=== PATIENT | female | born 1940 | race African-American/Black ===

== ENCOUNTER 2021-02-17 10:20 | Inpatient (IN) | payer MEDICARE, OTHER ==
[~2021-02-17] VITALS: Ht 167.6 cm; Wt 72.6 kg
[2021-02-17 11:13] LABS: BASOPHILS # (AUTO) 0.1 (0.0-0.1); BASOPHILS % 0.7 % (0.0-1.0); LYMPHOCYTES # (AUTO) 1.6 (1.0-3.2); LYMPHOCYTES % 12.7 % (18.0-39.1); MEAN CORPUSCULAR HEMOGLOBIN 30.9 pg (28-32); MEAN CORPUSCULAR HGB CONC 29.6 g/dL (31-35); MEAN CORPUSCULAR VOLUME 104.3 fL (81-99); MONOCYTES # (AUTO) 6.8 (0.2-0.8); MONOCYTES % 53.6 % (4.4-11.3); NEUTROPHILS % 31.7 % (38.7-80.0); PLATELET COUNT 56 x10e3/uL (140-360); RED BLOOD COUNT 1.88 x10e6/uL (3.6-5.1); RED CELL DISTRIBUTION WIDTH 23.1 % (11.7-14.4)
[2021-02-17 11:28] LABS: HEMOGLOBIN 5.8 g/dL (12.0-16.0)
[2021-02-17 11:29] LABS: HEMATOCRIT 19.6 % (34.2-44.1)
[2021-02-17] MEDS ORDERED: SODIUM CHLORIDE 0.9% 250ML 250 ML IV ONE (11:30)
[2021-02-17 11:32] LABS: ALBUMIN 3.5 g/dL (3.5-5.0); ALBUMIN/GLOBULIN RATIO 0.8 (0.8-2.0); ANION GAP 15.5 mmol/L (8-16); CREATININE, SERUM 1.18 mg/dL (0.57-1.11)
[2021-02-17 11:34] LABS: CALCIUM 6.6 mg/dL (8.4-10.2); POTASSIUM 2.5 mmol/L (3.5-5.1)
[2021-02-17] MEDS ORDERED: POTASSIUM CHLORIDE 10MEQ/100ML 100 ML IV STA (11:44)
[2021-02-17 12:00] LABS: BAND NEUTROPHILS % (MANUAL) 2 %; EOSINOPHILS % (MANUAL) 1 % (0-7); LYMPHOCYTES % (MANUAL) 27 % (19-48); METAMYELOCYTES % (MANUAL) 3 % (0-0); MONOCYTES % (MANUAL) 26 % (3.4-9.0); MYELOCYTES % (MANUAL) 2 % (0-0); NEUTROPHILS % (MANUAL) 37 % (40-74)
[2021-02-17] MEDS ORDERED: POTASSIUM CHLORIDE 20 MEQ TAB CR PO NR (12:00)
[2021-02-17 12:01] LABS: ANISOCYTOSIS MODE; MICROCYTOSIS MODE; POIKILOCYTOSIS MODERATE; TARGET CELLS FEW
[2021-02-17 12:05] LABS: PLATELET ESTIMATE MODERATELY DECREASED; PLATELET MORPHOLOGY COMMENT NORMAL; RBC MORPHOLOGY COMMENT NORMAL; SCHISTOCYTES RARE
[2021-02-17 12:06] LABS: HYPOCHROMASIA SLIG; POLYCHROMASIA FEW
[2021-02-17] MEDS ORDERED: SODIUM CHLORIDE 0.9% 500ML 500 ML IV ONE (12:15)
[2021-02-17 16:42] VITALS: BP 136/89
[2021-02-17 17:00] VITALS: BP 136/89
[2021-02-17 17:01] VITALS: BP 136/89
[2021-02-17] MEDS ORDERED: ALBUTEROL S5 MG/1 ML INH (17:13)
[2021-02-17] MEDS ORDERED: PIOGLITAZONE HC15 MG (17:27)
[2021-02-17] MEDS ORDERED: FEROSUL325 MG (17:27)
[2021-02-17] MEDS ORDERED: LOVASTATIN40 MG (17:27)
[2021-02-17] MEDS ORDERED: ESCITALOPRAM OX10 MG (17:27)
[2021-02-17] MEDS ORDERED: DESONIDE15 GM (17:27)
[2021-02-17] MEDS ORDERED: TRELEGY ELLIPT1 EACH INH (17:27)
[2021-02-17] MEDS ORDERED: HYDROXYUREA500 MG PO (17:27)
[2021-02-17] MEDS ORDERED: GLIPIZIDE10 MG PO (17:27)
[2021-02-17] MEDS ORDERED: TRADJENTA5 MG (17:27)
[2021-02-17] MEDS ORDERED: PANTOPRAZOLE SO40 MG PO (17:27)
[2021-02-17] MEDS ORDERED: METFORMIN HCL500 M1 PO (17:27)
[2021-02-17] MEDS ORDERED: PREDNISONE20 MG (17:27)
[2021-02-17] MEDS ORDERED: METOPROLOL SUCC50 MG PO (17:27)
[2021-02-17] MEDS ORDERED: LANTUS 3ML100 UNITS/ (17:27)
[2021-02-17] MEDS ORDERED: ALLOPURINOL300 MG (17:27)
[2021-02-17] MEDS ORDERED: LISINOPRIL2.5 MG PO (17:27)
[2021-02-17] MEDS ORDERED: METAMUCIL FIBE3.4 GM PO (17:36)
[2021-02-17] MEDS ORDERED: ATIVAN0.5 MG PO (17:36)
[2021-02-17] MEDS ORDERED: CRESTOR10 MG PO (17:36)
[2021-02-17] MEDS ORDERED: TRADJENTA5 MG PO (17:36)
[2021-02-17] MEDS ORDERED: ALBUTEROL1.25 MG/3 NEB (17:36)
[2021-02-17] MEDS ORDERED: MIRALAX17 GM PO (17:36)
[2021-02-17] MEDS ORDERED: LEVSIN0.125 MG SL (17:36)
[2021-02-17] MEDS ORDERED: tylenol #3 PO (17:36)
[2021-02-17] MEDS ORDERED: ACETAMINOPHEN325 M1 PO (17:36)
[2021-02-17] MEDS ORDERED: humalog SQ (17:36)
[2021-02-17] MEDS ORDERED: SODIUM CHLORIDE 0.9% 250ML 250 ML ONE (18:17)
[2021-02-17] MEDS ORDERED: ALBUTEROL SULF 0.083% NEB SOLN 3 ML NEB NEB PRN (19:15)
[2021-02-17 20:27] VITALS: BP 109/94
[2021-02-17 21:24] VITALS: BP 109/94
[2021-02-17 23:43] VITALS: BP 129/69
[2021-02-18] VITALS (7 sets, daily range): BP systolic 118–127; BP diastolic 56–67
[2021-02-18] MEDS: ALBUTEROL SULF 0.083% NEB SOLN 3 ML NEB NEB SCH ×4 (00:35→19:00)
[2021-02-18 06:00] LABS: BASOPHILS # (AUTO) 0.1 (0.0-0.1); BASOPHILS % 0.5 % (0.0-1.0); EOSINOPHILS % 0.2 % (0.0-6.0); LYMPHOCYTES # (AUTO) 1.9 (1.0-3.2); LYMPHOCYTES % 11.2 % (18.0-39.1); MEAN CORPUSCULAR HEMOGLOBIN 29.9 pg (28-32); MEAN CORPUSCULAR HGB CONC 30.7 g/dL (31-35); MEAN CORPUSCULAR VOLUME 97.3 fL (81-99); MONOCYTES # (AUTO) 9.7 (0.2-0.8); MONOCYTES % 57.5 % (4.4-11.3); NEUTROPHILS # (AUTO) 4.8 (2.1-6.9); NEUTROPHILS % 28.5 % (38.7-80.0); PLATELET COUNT 51 x10e3/uL (140-360); RED BLOOD COUNT 2.21 x10e6/uL (3.6-5.1); RED CELL DISTRIBUTION WIDTH 22.9 % (11.7-14.4)
[2021-02-18 06:14] LABS: HEMATOCRIT 21.5 % (34.2-44.1); HEMOGLOBIN 6.6 g/dL (12.0-16.0)
[2021-02-18] MEDS ORDERED: SODIUM CHLORIDE 0.9% 250ML 250 ML IV ONE (06:30)
[2021-02-18 06:49] LABS: ANION GAP 13.4 mmol/L (8-16); CREATININE, SERUM 0.99 mg/dL (0.57-1.11)
[2021-02-18 06:52] LABS: CALCIUM 6.2 mg/dL (8.4-10.2); MAGNESIUM 0.9 MG/DL (1.3-2.1); POTASSIUM 2.4 mmol/L (3.5-5.1)
[2021-02-18 07:05] LABS: LYMPHOCYTES % (MANUAL) 35 % (19-48); MONOCYTES % (MANUAL) 30 % (3.4-9.0); NEUTROPHILS % (MANUAL) 35 % (40-74)
[2021-02-18 07:06] LABS: ANISOCYTOSIS SLIG; HYPOCHROMASIA MODERATE; POIKILOCYTOSIS MODE
[2021-02-18 07:07] LABS: PLATELET ESTIMATE MODERATELY DECREASED; POLYCHROMASIA MODE; RBC MORPHOLOGY COMMENT ABNORMAL; STOMATOCYTES F; TARGET CELLS FEW
[2021-02-18] MEDS ORDERED: POTASSIUM CHLORIDE 20MEQ/100ML 100 ML IV STA (09:20)
[2021-02-18] MEDS ORDERED: MAGNESIUM SULFATE 2GM/50ML 50 ML IV ONE (09:30)
[2021-02-18] MEDS ORDERED: LORAZEPAM 0.5 MG TAB PO PRN (09:30)
[2021-02-18] MEDS ORDERED: SODIUM CHLORIDE 0.45% 1,000 ML IV ONE (09:30)
[2021-02-18] MEDS ORDERED: POLYETHYLENE GLYCOL 3350 17 GM PACK PO PRN (09:30)
[2021-02-18] MEDS ORDERED: ACETAMINOPHEN 325 MG TAB PO PRN (09:30)
[2021-02-18 09:45] LABS: CHOL/HDL RATIO 3.3 (3.0-3.6)
[2021-02-18] MEDS ORDERED: CALCIUM GLUCONATE 10% INJ 13.95 MEQ in SODIUM CHLORIDE 0.9% 100 ML 100 ML IV ONE (10:00)
[2021-02-18] MEDS ORDERED: POTASSIUM CHLORIDE 20 MEQ TAB CR PO ONE (10:00)
[2021-02-18] MEDS ORDERED: SODIUM CHLORIDE 0.9% 250ML 250 ML ONE ×2 (10:41→23:19)
[2021-02-18 16:47] LABS: MAGNESIUM 1.3 MG/DL (1.3-2.1); PHOSPHORUS 3.1 MG/DL (2.3-4.7)
[2021-02-18] MEDS ORDERED: HYDROXYUREA 500 MG CAPSULE PO SCH (17:00)
[2021-02-18 17:11] LABS: POTASSIUM 2.9 mmol/L (3.5-5.1)
[2021-02-18] MEDS ORDERED: SIMETHICONE 80 MG CHEW PO PRN (18:30)
[2021-02-18] MEDS: SIMVASTATIN 20 MG TAB PO SCH (21:24)
[2021-02-18] MEDS: HYDROXYUREA 500 MG CAPSULE PO SCH (21:24)
[2021-02-18] MEDS: HYOSCYAMINE 0.125 MG TAB SL PRN (22:20)
[2021-02-19] VITALS (8 sets, daily range): BP systolic 96–159; BP diastolic 57–87
[2021-02-19] MEDS: ALBUTEROL SULF 0.083% NEB SOLN 3 ML NEB NEB SCH ×4 (00:55→14:45)
[2021-02-19 06:36] LABS: BASOPHILS # (AUTO) 0.1 (0.0-0.1); BASOPHILS % 0.4 % (0.0-1.0); HEMATOCRIT 28.1 % (34.2-44.1); HEMOGLOBIN 8.7 g/dL (12.0-16.0); LYMPHOCYTES % 6.3 % (18.0-39.1); MEAN CORPUSCULAR HEMOGLOBIN 29.4 pg (28-32); MEAN CORPUSCULAR VOLUME 94.9 fL (81-99); MONOCYTES # (AUTO) 19.1 (0.2-0.8); MONOCYTES % 60.2 % (4.4-11.3); NEUTROPHILS # (AUTO) 9.7 (2.1-6.9); NEUTROPHILS % 30.7 % (38.7-80.0); PLATELET COUNT 57 x10e3/uL (140-360); RED BLOOD COUNT 2.96 x10e6/uL (3.6-5.1); RED CELL DISTRIBUTION WIDTH 21.1 % (11.7-14.4)
[2021-02-19] MEDS ORDERED: FUROSEMIDE INJ 10 MG/ML 2 ML VIAL IV ONE (06:45)
[2021-02-19 06:50] LABS: ANION GAP 14.6 mmol/L (8-16); CALCIUM 7.5 mg/dL (8.4-10.2); CREATININE, SERUM 0.95 mg/dL (0.57-1.11); MAGNESIUM 1.2 MG/DL (1.3-2.1); PHOSPHORUS 3.3 MG/DL (2.3-4.7)
[2021-02-19 06:52] LABS: POTASSIUM 2.6 mmol/L (3.5-5.1)
[2021-02-19] MEDS ORDERED: POTASSIUM CHLORIDE 20 MEQ TAB CR PO STA (07:08)
[2021-02-19] MEDS ORDERED: MAGNESIUM SULFATE 2GM/50ML 50 ML IV ONE ×2 (07:15→13:15)
[2021-02-19] MEDS: METOPROLOL SUCCINATE 50 MG TAB XL PO SCH (08:33)
[2021-02-19] MEDS: HYDROXYUREA 500 MG CAPSULE PO SCH ×2 (08:33→20:29)
[2021-02-19] MEDS: PANTOPRAZOLE SOD 40 MG TABEC PO SCH (08:33)
[2021-02-19] MEDS: METHYLPREDNISOLONE SOD SUCC 40 MG/ML VIAL 1ML IV SCH ×2 (11:30→22:30)
[2021-02-19] MEDS ORDERED: POTASSIUM CHLORIDE 20MEQ/100ML 100 ML IV ONE (13:15)
[2021-02-19 14:21] LABS: MAGNESIUM 1.5 MG/DL (1.3-2.1); POTASSIUM 3.7 mmol/L (3.5-5.1)
[2021-02-19] MEDS: LEVALBUTEROL HCL SOLN NEBU 0.63 MG/3 ML NEB INH SCH ×3 (15:00→22:55)
[2021-02-19] MEDS: INSULIN LISPRO 100 UNIT/1 ML 3ML VIAL SQ SCH ×2 (16:30→17:14)
[2021-02-19] MEDS: HYOSCYAMINE 0.125 MG TAB SL PRN (19:51)
[2021-02-19] MEDS: SIMVASTATIN 20 MG TAB PO SCH (20:29)
[2021-02-19] MEDS: FUROSEMIDE INJ 10 MG/ML 2 ML VIAL IV SCH (20:31)
[2021-02-20] VITALS (9 sets, daily range): BP systolic 107–147; BP diastolic 50–84
[2021-02-20] MEDS: LEVALBUTEROL HCL SOLN NEBU 0.63 MG/3 ML NEB INH SCH ×6 (03:00→23:55)
[2021-02-20] MEDS: INSULIN LISPRO 100 UNIT/1 ML 3ML VIAL SQ SCH ×3 (08:01→16:30)
[2021-02-20 08:08] LABS: BASOPHILS # (AUTO) 0.1 (0.0-0.1); BASOPHILS % 0.3 % (0.0-1.0); HEMATOCRIT 28.5 % (34.2-44.1); HEMOGLOBIN 8.9 g/dL (12.0-16.0); LYMPHOCYTES # (AUTO) 1.8 (1.0-3.2); LYMPHOCYTES % 5.3 % (18.0-39.1); MEAN CORPUSCULAR HEMOGLOBIN 29.7 pg (28-32); MEAN CORPUSCULAR HGB CONC 31.2 g/dL (31-35); MONOCYTES # (AUTO) 16.7 (0.2-0.8); MONOCYTES % 48.1 % (4.4-11.3); NEUTROPHILS # (AUTO) 14.4 (2.1-6.9); NEUTROPHILS % 41.4 % (38.7-80.0); PLATELET COUNT 61 x10e3/uL (140-360); RED CELL DISTRIBUTION WIDTH 20.6 % (11.7-14.4)
[2021-02-20 08:30] LABS: ANION GAP 13.7 mmol/L (8-16); CALCIUM 7.8 mg/dL (8.4-10.2); CREATININE, SERUM 1.08 mg/dL (0.57-1.11); MAGNESIUM 1.4 MG/DL (1.3-2.1); PHOSPHORUS 3.7 MG/DL (2.3-4.7)
[2021-02-20] MEDS: FUROSEMIDE INJ 10 MG/ML 2 ML VIAL IV SCH ×2 (08:33→20:39)
[2021-02-20] MEDS: PANTOPRAZOLE SOD 40 MG TABEC PO SCH (08:34)
[2021-02-20] MEDS: METHYLPREDNISOLONE SOD SUCC 40 MG/ML VIAL 1ML IV SCH ×2 (08:34→20:40)
[2021-02-20] MEDS: HYDROXYUREA 500 MG CAPSULE PO SCH ×2 (08:34→20:40)
[2021-02-20] MEDS: METOPROLOL SUCCINATE 50 MG TAB XL PO SCH (08:34)
[2021-02-20 08:36] LABS: POTASSIUM 2.7 mmol/L (3.5-5.1)
[2021-02-20 09:58] LABS: LYMPHOCYTES % (MANUAL) 8 % (19-48); METAMYELOCYTES % (MANUAL) 1 % (0-0); MONOCYTES % (MANUAL) 32 % (3.4-9.0); NEUTROPHILS % (MANUAL) 59 % (40-74); PLATELET ESTIMATE MODERATELY DECREASED; PLATELET MORPHOLOGY COMMENT NORMAL
[2021-02-20 09:59] LABS: ANISOCYTOSIS MODERATE; RBC MORPHOLOGY COMMENT ABNORMAL
[2021-02-20 10:00] LABS: POIKILOCYTOSIS SLIGHT
[2021-02-20] MEDS ORDERED: POTASSIUM CHLORIDE 20MEQ/100ML 100 ML IV ONE (10:30)
[2021-02-20] MEDS ORDERED: POTASSIUM CHLORIDE 20 MEQ TAB CR PO ONE (10:30)
[2021-02-20] MEDS: HYOSCYAMINE 0.125 MG TAB SL PRN (20:39)
[2021-02-20] MEDS: ZOLPIDEM TARTRATE 5 MG TAB PO PRN (20:39)
[2021-02-20] MEDS: SIMVASTATIN 20 MG TAB PO SCH (20:40)
[2021-02-21] VITALS (9 sets, daily range): BP systolic 119–148; BP diastolic 58–79
[2021-02-21] MEDS: LEVALBUTEROL HCL SOLN NEBU 0.63 MG/3 ML NEB INH SCH ×6 (03:50→23:32)
[2021-02-21] MEDS: INSULIN LISPRO 100 UNIT/1 ML 3ML VIAL SQ SCH ×3 (07:30→16:30)
[2021-02-21 08:12] LABS: CALCIUM 7.8 mg/dL (8.4-10.2); CREATININE, SERUM 1.03 mg/dL (0.57-1.11)
[2021-02-21] MEDS: METOPROLOL SUCCINATE 50 MG TAB XL PO SCH (09:00)
[2021-02-21] MEDS: PANTOPRAZOLE SOD 40 MG TABEC PO SCH (09:00)
[2021-02-21] MEDS: FUROSEMIDE INJ 10 MG/ML 2 ML VIAL IV SCH ×2 (09:00→21:54)
[2021-02-21] MEDS: METHYLPREDNISOLONE SOD SUCC 40 MG/ML VIAL 1ML IV SCH ×2 (09:00→21:54)
[2021-02-21] MEDS: HYDROXYUREA 500 MG CAPSULE PO SCH ×2 (09:00→21:54)
[2021-02-21] MEDS ORDERED: POTASSIUM CHLORIDE 20 MEQ TAB CR PO ONE (09:30)
[2021-02-21] MEDS ORDERED: FUROSEMIDE40 MG PO (15:01)
[2021-02-21] MEDS ORDERED: SIMETHICONE80 MG PO (15:01)
[2021-02-21] MEDS ORDERED: PREDNISONE20 MG PO (15:01)
[2021-02-21] MEDS ORDERED: POTASSIUM CHLO20 ME1 PO (15:01)
[2021-02-21] MEDS: HYOSCYAMINE 0.125 MG TAB SL PRN (21:54)
[2021-02-21] MEDS: SIMVASTATIN 20 MG TAB PO SCH (21:54)
[2021-02-21] MEDS: ZOLPIDEM TARTRATE 5 MG TAB PO PRN (21:54)
[2021-02-22] MEDS: LEVALBUTEROL HCL SOLN NEBU 0.63 MG/3 ML NEB INH SCH ×5 (02:50→15:18)
[2021-02-22 05:24] VITALS: BP 135/75
[2021-02-22 08:22] VITALS: BP 130/73
[2021-02-22] MEDS: HYDROXYUREA 500 MG CAPSULE PO SCH (09:28)
[2021-02-22] MEDS: PANTOPRAZOLE SOD 40 MG TABEC PO SCH (09:28)
[2021-02-22] MEDS: METOPROLOL SUCCINATE 50 MG TAB XL PO SCH (09:29)
[2021-02-22] MEDS: METHYLPREDNISOLONE SOD SUCC 40 MG/ML VIAL 1ML IV SCH (09:30)
[2021-02-22] MEDS: FUROSEMIDE INJ 10 MG/ML 2 ML VIAL IV SCH (09:30)
[2021-02-22] MEDS: INSULIN LISPRO 100 UNIT/1 ML 3ML VIAL SQ SCH ×3 (10:02→17:49)
[2021-02-22 10:52] VITALS: BP 130/73
[2021-02-22 11:46] VITALS: BP 139/82
[2021-02-22] MEDS ORDERED: INSULIN GLARGINE 100 UNITS/ML VIAL SQ SCH (13:15)
[2021-02-22 14:52] LABS: ANION GAP 14.8 mmol/L (8-16); CALCIUM 8.2 mg/dL (8.4-10.2); CREATININE, SERUM 1.13 mg/dL (0.57-1.11); POTASSIUM 3.8 mmol/L (3.5-5.1)
[2021-02-22 15:04] LABS: MAGNESIUM 1.2 MG/DL (1.3-2.1); PHOSPHORUS 3.2 MG/DL (2.3-4.7)
[2021-02-22 16:34] VITALS: BP 140/71
== END 2021-02-22 20:04 | disposition home or self-care (01) | DRG 840 ==
LOC: ER 10:26 → ERHOLD 13:38 → MED/SURG 17:27 → OBSVTOIN 02-19 11:20 → MED/SURG2 02-20 11:28
PROVIDERS: ADMIT Internal Medicine; ATTEND Internal Medicine
PROC: 30233N1 Transfusion of Nonautologous Red Blood Cells into Peripheral Vein, Percutaneous Approach (ICD-10-PCS; principal; 2021-02-17)
DX: D61.82 Myelophthisis (principal); J81.0 Acute pulmonary edema; C92.10 Chronic myeloid leukemia, BCR/ABL-positive, not having achieved remission; E87.0 Hyperosmolality and hypernatremia; N17.9 Acute kidney failure, unspecified; E87.6 Hypokalemia; E83.42 Hypomagnesemia; E83.51 Hypocalcemia; E11.9 Type 2 diabetes mellitus without complications; J44.9 Chronic obstructive pulmonary disease, unspecified; Z87.891 Personal history of nicotine dependence; D69.6 Thrombocytopenia, unspecified; T80.89XA Other complications following infusion, transfusion and therapeutic injection, initial encounter
CPT/HCPCS: 36415; 71045; 80048; 80053; 80061; 82550; 82553; 82948; 83036; 83735; 83880; 84100; 84132; 84484; 85025; 86850; 86900; 86920; 93005; 94640; 99251; 99284; G0378; J0610; J1815; J1940; J2920; J3475; J3480; J7040; J7050; P9016

== ENCOUNTER 2021-03-30 16:47 | Emergency (ER) | payer MEDICARE, OTHER ==
[~2021-03-30] VITALS: Ht 167.6 cm; Wt 68.9 kg
[~2021-03-30 16:47] MED LIST: ACETAMINOPHEN325 M1 PO; ALBUTEROL S5 MG/1 ML INH; ALBUTEROL1.25 MG/3 NEB; ALLOPURINOL300 MG; ATIVAN0.5 MG PO; CRESTOR10 MG PO; DESONIDE15 GM; ESCITALOPRAM OX10 MG; FEROSUL325 MG; FUROSEMIDE40 MG PO; GLIPIZIDE10 MG PO; HYDROXYUREA500 MG PO; LANTUS 3ML100 UNITS/; LEVSIN0.125 MG SL; LISINOPRIL2.5 MG PO; LOVASTATIN40 MG; METAMUCIL FIBE3.4 GM PO; METFORMIN HCL500 M1 PO; METOPROLOL SUCC50 MG PO; MIRALAX17 GM PO; PANTOPRAZOLE SO40 MG PO; PIOGLITAZONE HC15 MG; POTASSIUM CHLO20 ME1 PO; PREDNISONE20 MG; PREDNISONE20 MG PO; SIMETHICONE80 MG PO; TRADJENTA5 MG; TRADJENTA5 MG PO; TRELEGY ELLIPT1 EACH INH; humalog SQ; tylenol #3 PO
[2021-03-30 17:33] LABS: BASOPHILS % 0.7 % (0.0-1.0); LYMPHOCYTES # (AUTO) 1.1 (1.0-3.2); LYMPHOCYTES % 25.8 % (18.0-39.1); MEAN CORPUSCULAR HGB CONC 30.2 g/dL (31-35); MEAN CORPUSCULAR VOLUME 96.1 fL (81-99); MONOCYTES # (AUTO) 2.3 (0.2-0.8); MONOCYTES % 55.3 % (4.4-11.3); NEUTROPHILS # (AUTO) 0.8 (2.1-6.9); RED BLOOD COUNT 2.31 x10e6/uL (3.6-5.1); RED CELL DISTRIBUTION WIDTH 20.4 % (11.7-14.4)
[2021-03-30 17:37] LABS: HEMATOCRIT 22.2 % (34.2-44.1)
[2021-03-30 17:48] LABS: HEMOGLOBIN 6.7 g/dL (12.0-16.0); PLATELET COUNT 47 x10e3/uL (140-360)
[2021-03-30 17:50] LABS: ALBUMIN 3.6 g/dL (3.5-5.0); ALBUMIN/GLOBULIN RATIO 0.9 (0.8-2.0); ANION GAP 17.7 mmol/L (8-16); CALCIUM 7.5 mg/dL (8.4-10.2); CREATININE, SERUM 1.43 mg/dL (0.57-1.11)
[2021-03-30 17:53] LABS: POTASSIUM 2.7 mmol/L (3.5-5.1)
[2021-03-30] MEDS ORDERED: SODIUM CHLORIDE 0.9% 250ML 250 ML IV ONE (18:00)
[2021-03-30] MEDS ORDERED: POTASSIUM CHLORIDE 20 MEQ TAB CR PO STA (18:03)
[2021-03-30 19:52] LABS: LYMPHOCYTES % (MANUAL) 28 % (19-48); MONOCYTES % (MANUAL) 49 % (3.4-9.0); NEUTROPHILS % (MANUAL) 18 % (40-74)
[2021-03-30 19:55] LABS: PLATELET ESTIMATE MARKEDLY DECREASED
[2021-03-30 19:56] LABS: PLATELET MORPHOLOGY COMMENT FEW LARGE
[2021-03-31 02:51] VITALS: BP 118/80
== END 2021-03-31 03:15 | disposition home or self-care (01) ==
LOC: ER 17:00
DX: D64.9 Anemia, unspecified (principal); E11.65 Type 2 diabetes mellitus with hyperglycemia; R94.31 Abnormal electrocardiogram [ECG] [EKG]; I10 Essential (primary) hypertension; Z85.6 Personal history of leukemia
CPT/HCPCS: 36415; 80053; 85025; 86850; 86900; 86920; 93005; 99284; J7050; P9016

== ENCOUNTER 2021-04-27 17:37 | Emergency (ER) | payer MEDICARE, OTHER ==
[~2021-04-27] VITALS: Ht 167.6 cm; Wt 68.9 kg
[2021-04-27] MEDS ORDERED: TETRACAINE HCL 0.5% OPTH SOLN 4 ML BTL OP ONE (18:15)
[2021-04-27] MEDS ORDERED: FLUORESCEIN SOD(OPTH) 1 MG STRP OP ONE (18:15)
[2021-04-27 18:33] LABS: BASOPHILS # (AUTO) 0.1 (0.0-0.1); BASOPHILS % 0.4 % (0.0-1.0); EOSINOPHILS % 0.3 % (0.0-6.0); HEMATOCRIT 25.5 % (34.2-44.1); HEMOGLOBIN 7.6 g/dL (12.0-16.0); LYMPHOCYTES # (AUTO) 1.9 (1.0-3.2); LYMPHOCYTES % 16.9 % (18.0-39.1); MEAN CORPUSCULAR HEMOGLOBIN 29.3 pg (28-32); MEAN CORPUSCULAR HGB CONC 29.8 g/dL (31-35); MEAN CORPUSCULAR VOLUME 98.5 fL (81-99); MONOCYTES # (AUTO) 4.8 (0.2-0.8); MONOCYTES % 41.7 % (4.4-11.3); NEUTROPHILS # (AUTO) 4.6 (2.1-6.9); NEUTROPHILS % 39.7 % (38.7-80.0); PLATELET COUNT 74 x10e3/uL (140-360); RED BLOOD COUNT 2.59 x10e6/uL (3.6-5.1); RED CELL DISTRIBUTION WIDTH 21.2 % (11.7-14.4)
[2021-04-27 18:42] LABS: ANION GAP 13.5 mmol/L (8-16); CALCIUM 9.1 mg/dL (8.4-10.2); CREATININE, SERUM 1.29 mg/dL (0.57-1.11); POTASSIUM 3.5 mmol/L (3.5-5.1)
[2021-04-27] MEDS ORDERED: SODIUM CHLORIDE 0.9% 50ML 50 ML ONE (19:24)
[2021-04-27] MEDS ORDERED: IOPAMIDOL 370 MG/ML 200 ML INFUS..BTL INJ ONE (19:24)
[2021-04-27] MEDS ORDERED: AUGMENTIN 875-1 EACH PO (20:07)
[2021-04-27] MEDS ORDERED: CLEOCIN HCL300 MG PO (20:07)
[2021-04-27] MEDS ORDERED: CLINDAMYCIN 300MG 50 ML IV STA (20:08)
[2021-04-27] MEDS ORDERED: AMPICILLIN SOD/SULBACTAM 3GM 100 ML IV STA (20:08)
[2021-04-27 21:35] LABS: HYPOCHROMASIA MODERATE; LYMPHOCYTES % (MANUAL) 21 % (19-48); MONOCYTES % (MANUAL) 38 % (3.4-9.0); NEUTROPHILS % (MANUAL) 41 % (40-74)
[2021-04-27 21:36] LABS: PLATELET ESTIMATE MODERATELY DECREASED; PLATELET MORPHOLOGY COMMENT NORMAL; RBC MORPHOLOGY COMMENT ABNORMAL
== END 2021-04-27 22:29 | disposition home or self-care (01) ==
LOC: ER 18:21
DX: L03.213 Periorbital cellulitis (principal); I10 Essential (primary) hypertension; E11.65 Type 2 diabetes mellitus with hyperglycemia; J44.9 Chronic obstructive pulmonary disease, unspecified; D64.9 Anemia, unspecified; Z85.6 Personal history of leukemia
CPT/HCPCS: 36415; 70481; 80048; 85025; 99284; J0295; Q9967